=== PATIENT | male | born 1995 | race Hispanic/Latino ===

== ENCOUNTER 2022-05-15 01:42 | Emergency (ER) | payer OTHER ==
[~2022-05-15] VITALS: Ht 172.7 cm; Wt 81.6 kg
[2022-05-15 03:04] VITALS: BP 121/67
[2022-05-15] MEDS ORDERED: IBUP-2071 PO (03:15)
== END 2022-05-15 03:26 | disposition home or self-care (01) ==
LOC: EDH 01:42
DX: S01.112A Laceration without foreign body of left eyelid and periocular area, initial encounter (principal); W22.8XXA Striking against or struck by other objects, initial encounter; Y93.89 Activity, other specified; Y92.89 Other specified places as the place of occurrence of the external cause; Y99.8 Other external cause status
CPT/HCPCS: 12014; 70450